=== PATIENT | male | born 1955 | race Caucasian/White ===

== ENCOUNTER → 2024-05-18 | Outpatient (CLI) | payer MEDICARE, SELFPAY ==
--- NOTE | 2024-05-18 | IMM_PTH ---
PATIENT: RAHAT LOPEZ LOC: [facility] U#:[id number] AGE/SX: 69/M ROOM: RE05/18/[address]: Dr. Jose Culver MD : 1955 BED: DIS: 05/18/2024 SPEC #: [id number] RECD: 05/20/24 11:51 STATUS: DIANNE REQ #: [id number] SHAZIA: 05/18/24 00:[address]: Jose Culver DEPT: IMMUNOHISTOCHEMISTRY RECD BY: Melo Brody ENTERED: 05/20/24 11:53 SP TYPE: IMMUNO OTHR DR: Dr. Toi Quiles MD Tissues: C - PROSTATE RIGHT E - PROSTATE LEFT F - PROSTATE LEFT Procedures: 34BE12 (add) P40 (add) P40 (initial) PHYSICIAN & INSTITUTION [place] [id number] SPECIMEN INFORMATION: Tissue Source: C- Right base, E- Left mid, F- Left base Clinical Info: Elevated PSA Specimen Number: [id number] C, E, F CPT code: 30099,77485z2 METHODOLOGY: Deparaffinized sections of prefer/formalin-fixed tissue or PAP/DQ stained slides are incubated with monoclonal/polyclonal antibodies/oligonucleotide probes. Localization is made via biotin free immunoperoxidase method. Appropriate controls are performed and reacted as expected. Results on target cell population are indicated in the following table: RESULTS: ANTIBODY / CLONE RESULT Block C P40 (BC28) negative 34BE12 (34BE12) negative Block E P40 (BC28) negative* 34BE12 (34BE12) negative * Block F P40 (BC28) positive 34BE12 (34BE12) positive * Positive in the area of high-grade prostatic intraepithelial neoplasia (HGPIN). These tests were developed and their performance characteristics determined by [facility]. They may not have been cleared or approved by the U.S. Food and Drug Administration. The FDA has determined that such clearance or approval is not necessary. The above immunohistochemical/dualISH markers are ordered and reviewed by the Pathologist. INTERPRETATION: C. Prostate, right base, core biopsy: A minute focus of adenocarcinoma. E. Prostate, left mid, core biopsy: A minute focus of adenocarcinoma. Focal high-grade prostatic intraepithelial neoplasia (HGPIN). F. Prostate, left base, core biopsy: High-grade prostatic intraepithelial neoplasia (HGPIN). PAULINO/ 05/21/2024
--- NOTE | 2024-05-18 | PROSBIL_PTH ---
PATIENT: RAHAT LOPEZ LOC: [facility] U#:[id number] AGE/SX: 69/M ROOM: RE05/18/[address]: Dr. Jose Culver MD : 1955 BED: DIS: 05/18/2024 SPEC #: [id number] RECD: 05/19/24 10:35 STATUS: DIANNE REQ #: [id number] SHAZIA: 05/18/24 00:[address]: Jose Culver DEPT: SURGICAL PATHOLOGY RECD BY: Annie Camarena ENTERED: 05/19/24 10:35 SP TYPE: PROST BX WILLIAM DR: Dr. Toi Quiles MD Tissues: A - PROSTATE RIGHT B - PROSTATE RIGHT C - PROSTATE RIGHT D - PROSTATE LEFT E - PROSTATE LEFT F - PROSTATE LEFT Procedures: PROSTATE BX HEADER OPERATION: Prostate biopsy PRE-OP DIAGNOSIS: Elevated PSA TISSUE SUBMITTED: A - Right apex, B - Right mid, C - Right base, D - Left apex, E - Left mid, F - Left base MICROSCOPIC DIAGNOSIS A. Right prostate, apex, core biopsy: Prostatic tissue, negative for malignancy. B. Right prostate, mid, core biopsy: Prostatic tissue, negative for malignancy. C. Right prostate, base, core biopsy: A minute focus of prostatic adenocarcinoma. [place] grade: 3+3=6 Number of cores involved: 1/2 Proportion of tissue involved: <5 % Perineural invasion: Not identified. Greatest tumor length: <0.1 cm See comment. D. Left prostate, apex, core biopsy: Prostatic adenocarcinoma. [place] grade: 3+4=7 Number of cores involved: 1/1 Proportion of tissue involved: ~40 % Perineural invasion: Not identified. Greatest tumor length: 0.4 cm E. Left prostate, mid, core biopsy: A minute focus prostatic adenocarcinoma. Maty grade: 3+3=6 Number of cores involved: 1/2 Proportion of tissue involved: <5 % Perineural invasion: Not identified. Greatest tumor length: <0.1 cm Focal high-grade prostatic intraepithelial neoplasia (HGPIN). See comment. F. Left prostate, base, core biopsy: Focal high-grade prostatic intraepithelial neoplasia (HGPIN). See comment. PAULINO/ 05/20/2024 COMMENT C, E, F. Immunohistochemistry ([id number]) supports the above diagnosis. MICROSCOPIC DESCRIPTION Slides are reviewed. GROSS DESCRIPTION A - Received is one container designated prostate, right apex. The specimen consists of one elongated fragments of light toussaint-white soft tissue measuring 1.5 cm in length and 0.1 cm in diameter. The specimen is totally submitted in one cassette. B - Received is one container designated prostate, right mid. The specimen consists of two elongated fragments of light toussaint-white soft tissue each measuring 1.5 cm in length and 0.1 cm in diameter. The specimen is totally submitted in one cassette. C - Received is one container designated prostate, right base. The specimen consists of two elongated fragments of light toussaint-white soft tissue measuring 0.5 and 1.0 cm in length and 0.1 cm in diameter. The specimen is totally submitted in one cassette. D - Received is one container designated prostate, left apex. The specimen consists of one elongated fragments of light toussaint-white soft tissue measuring 1.2 cm in length and 0.1 cm in diameter. The specimen is totally submitted in one cassette. E - Received is one container designated prostate, left mid. The specimen consists of two elongated fragments of light toussaint-white soft tissue each measuring 1.0 cm in length and 0.1 cm in diameter. The specimen is totally submitted in one cassette. F - Received is one container designated prostate, left base. The specimen consists of two elongated fragments of light toussaint-white soft tissue each measuring 1.0 cm in length and 0.1 cm in diameter. The specimen is totally submitted in one cassette. / PAULINO/ 05/19/2024 TC:0 CPT: G0146
== END | disposition home or self-care (01) ==
PROVIDERS: PCP Family Medicine; Referring Provider Urology; Visit Provider Urology
DX: R97.20 Elevated prostate specific antigen [PSA] (principal)
CPT/HCPCS: 88305; 88341; 88342; G0416

== ENCOUNTER → 2024-05-25 | Outpatient (CLI) | payer MEDICARE, OTHER, SELFPAY ==
--- NOTE | 2024-05-25 14:10 | CT_ITS ---
STUDY: CT ABDOMEN AND PELVIS WITH CONTRAST REASON FOR EXAM: Male, 69 years old. PROSTATE CA RADIATION DOSAGE (If Supplied By Facility): CTDIvol = ( 18.58 ) mGy, DLP = ( 937.01 ) mGycm TECHNIQUE: Oral and amp; IV Readi-CAT and amp; 100mL Isovue-370 was administered. Transaxial images were obtained from the dome of the diaphragm to the symphysis pubis. Multiplanar coronal and sagittal images were reformatted. The protocol utilizes one or more of the following dose reduction techniques: automated exposure control, adjustment of mA and/or kV according to patient size,and/or use of iterative reconstruction technique. COMPARISON: No relevant prior comparison study available FINDINGS: The visualized lung bases are unremarkable. The visualized portions of the heart are within normal limits. 6 mm low-density lesion in the right lobe of the liver likely representing cyst. Gallstone is seen. Normal spleen. Normal pancreas. Normal bilateral adrenal glands. Normal visualized stomach. Normal small intestine. Fecal retention. No evidence of acute diverticulitis. There is non-visualization of the appendix. No evidence of abdominal aortic aneurysm. No retroperitoneal adenopathy. Normal right kidney. Normal left kidney. Thickening of the bladder wall likely due to underdistention. Prominent prostate. Small left inguinal hernia containing fat. Dextroscoliosis and multilevel degenerative changes of the spine. No evidence of osteoblastic or osteolytic lesions.. CT/Abdomen/Pelvis WITH Contrast IMPRESSION: 1. No focal acute inflammatory process. 2. Fecal retention. 3. No evidence of metastatic disease. Electronically Signed: Kar Pritchett MD at 15:25 EDT ,
[2024-05-25 14:49] LABS: CREATININE FINGERSTICK < 1.0 mg/dL (0.70-1.30); EGFR FINGERSTICK > 60.0000 mL/min (>60)
== END | disposition home or self-care (01) ==
PROVIDERS: PCP Family Medicine; Referring Provider Urology; Visit Provider Urology
DX: C61 Malignant neoplasm of prostate (principal)
CPT/HCPCS: 74177; Q9967

== ENCOUNTER → 2024-06-01 | Outpatient (CLI) | payer MEDICARE, OTHER, SELFPAY ==
--- NOTE | 2024-06-01 07:40 | NM_ITS ---
CLINICAL: 69-year-old male with history of primary prostate carcinoma. WHOLE BODY 99m Tc MDP RADIONUCLIDE BONE SCINTIGRAPHY COMPARISON: CT of the abdomen-pelvis report 05/25/2024 FINDINGS: Following the intravenous administration of 26.6 mCi of 99m Tc MDP, whole body bone images reveal: 1. Increased radiopharmaceutical concentration is defined in the acromioclavicular compartments of both shoulders, the mid cervical spine posteriorly on the left and right, the fourth thoracic vertebra posteriorly on the right, the 12th thoracic vertebra posteriorly on the right, the second third and fifth lumbar vertebra posteriorly on the left, the knee articulations bilaterally, the left ankle, both elbow articulations, the right-left wrists. 2. The remaining skeletal structures are scintigraphically unremarkable with normal-appearing renal images and urinary bladder activity identified. Uptake is defined in the sternomanubrial synchondrosis most consistent with a normal variant. NM/Bone Scan Whole Body IMPRESSION: 1. The increase in uptake defined in the bilateral shoulders, the cervical, thoracic and lumbar spine, both knees, the left ankle, the elbow articulations bilaterally, the right and left wrists is commensurate with degenerative arthritis. Plain film radiography correlation may be of benefit in the region of the lumbar spine and left knee if clinically indicated. 2. There is no definitive scintigraphic evidence of diffuse axial skeletal metastatic disease on the current examination. Electronically Signed: Wagner Nino DO at 12:45 EDT ,
== END | disposition home or self-care (01) ==
PROVIDERS: PCP Family Medicine; Referring Provider Urology; Visit Provider Urology
DX: C61 Malignant neoplasm of prostate (principal)
CPT/HCPCS: 78306; A9503

== ENCOUNTER 2024-07-14 10:53 | Observation (INO) | payer MEDICARE, OTHER, SELFPAY ==
--- NOTE | 2024-07-12 08:43 | EKG12_ITS ---
Test Reason : PRE OP Blood Pressure : / mmHG Vent. Rate : 060 BPM Atrial Rate : 060 BPM P-R Int : 160 ms QRS Dur : 086 ms QT Int : 390 ms P-R-T Axes : 025 013 -12 degrees QTc Int : 390 ms Normal sinus rhythm Inferior infarct , age undetermined Abnormal ECG Confirmed by BRITTANY LI, LEONARDA ([id number]), make up editor VIRGEN CHRISTINE ([id number]) on 07/16/2024 6:10:22 AM Referred By: Jose Culver Confirmed By:KATY SOTO MD
[2024-07-12 09:32] LABS: Hematocrit 43.3 % (40-54); Hemoglobin 14.3 g/dL (13.0-16.5); Mean Corpuscular Hgb 31.5 pg (27.0-32.0); Mean Corpuscular Volume 95.4 fL (80-94); Mean Platelet Vol. 9.8 fl (6.2-12.0); Platelet Count 218 K/mm3 (150-450); RBC Distribution Width CV 13.2 % (11.6-14.6); RBC Distribution Width SD 46.1 fl (35.1-43.9); Red Blood Count 4.54 M/mm3 (4.6-6.2); White Blood Count 3.8 K/mm3 (4.4-11.0)
[2024-07-12 09:43] LABS: International Normalized Ratio 1.2; Prothrombin Time (Protime)PT. 15.3 SECONDS (11.7-14.9)
[2024-07-12 09:44] LABS: Partial Thromboplast Time 29.5 Seconds (24.1-36.2)
[2024-07-12 10:00] LABS: AST(SGOT) 19 U/L (15-37); Alanine Aminotransfer ALT/SGPT 25 U/L (16-61); Albumin, Serum 3.5 g/dL (3.2-5.0); Alkaline Phosphatase 91 U/L (45-117); Bilirubin, Direct 0.23 mg/dL (0.00-0.30); Globulin 3.7 g/dL (2.2-4.2); Protein, Total 7.2 g/dL (6.4-8.2)
[2024-07-14] VITALS (15 sets, daily range): BP systolic 106–148; BP diastolic 62–91; PULSE 50–69; RESP 14–18; TEMP 36.4–37.2; O2SAT 90–99; BMI 26.7
[2024-07-14] MEDS: Lactated Ringers 1,000 ML 15 ML IV (06:22)
--- NOTE | 2024-07-14 07:08 | PCM.PRE.AN2 ---
ASA Classification* ASA Classification ASA Classification: 2 Assessment & Plan Anesthesia* Anesthesia Assessment Anesthesia Assessment: Discussed sedation and/or anesthesia options, risks, benefits, and alternatives with patient/parents/legal guardian/POA. Questions invited. The patient/parents/legal guardian/POA seems to understand and agrees to proceed with anesthesia plan. Reviewed the physical assessment, medical history, allergy history and patient home medications list prior to surgery/procedure/anesthetic and documented any changes. Performed airway and anesthesia risk assessments. Anesthesia Type Anesthesia Type: General Anesthesia Focused Assessment* Temperature: 98.5 F Pulse Rate: 60 Blood Pressure: 148/91 Respiratory Rate: 18 Pulse Ox: 97 Airway Assessment Mouth opens: >3 cm Mallampati Score: II Focused Labs Anesthesia Preop lab: CBC WBC 3.8 K/mm3 (4.4-11.0) L 07/12/24 09:02 RBC 4.54 M/mm3 (4.6-6.2) L 07/12/24 09:02 Hgb 14.3 g/dL (13.0-16.5) 07/12/24 09:02 Hct 43.3 % (40-54) 07/12/24 09:02 Plt Count 218 K/mm3 (150-450) 07/12/24 09:02 CHEMISTRY COAG PT 15.3 SECONDS (11.7-14.9) H 07/12/24 09:02 Pre-Assessment Diagnosis/Proposed Procedure Planned Operative Procedure(s): Lap Robotic Radical Prostatectomy Anesthesia History 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 When Was Last Pacemaker Check QUESTION #4 FULL TEXT: You/Your Family Experience fever (hyperthermia) with Anesthesia Last Oral Intake Last Oral intake: Last Oral Intake NPO since 18:30 07/14/24 06:09 Meds taken in AM with sips of Yes 07/14/24 06:09 water? Meds patient instructed to take am of surgery PONV PONV - steam conditioner operator: PONV - steam conditioner operator Female No 07/07/24 15:04 HX of Motion Sickness No 07/07/24 15:04 HX of N/V After Surgery No 07/07/24 15:04 Non-Smoker Yes 07/07/24 15:04 Duration of Surgery greater Yes 07/07/24 15:04 than 60 minutes Number of Risk Factors 2 07/07/24 15:04 PONV Score Moderate Risk 07/07/24 15:04 Height & Weight Height & Weight: Anesthesia: Height & Weight Height 5 ft 5 in 07/14/24 06:09 Weight: 73 kg 07/14/24 06:09 Body Mass Index (BMI) 26.7 07/14/24 06:09 Respiratory Assessment Respiratory Assessment - steam conditioner operator: Respiratory Tract Infection Hx - steam conditioner operator Hx Respiratory Tract Infection No 07/07/24 15:04 STOP Sleep Apnea STOP Sleep Apnea - steam conditioner operator: STOP Sleep Apnea - steam conditioner operator Hx Hypertension Yes: CONTROLLED WITH MED 07/07/24 15:04 Hx Sleep Apnea No 07/07/24 15:04 CPAP BIPAP Do you snore loudly (louder No 07/07/24 15:04 than talking or can be heard Do you often feel tired/ No 07/07/24 15:04 fatigued/ sleepy during daytime? Has anyone observed you stop No 07/07/24 15:04 breathing during sleep? STOP Results Negative 07/07/24 15:04 QUESTION #5 FULL TEXT : Do you snore loudly (louder than talking or can be heard through closed doors)? 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 Specify any problems Hx of Preganancy in last 3 N/A 07/07/24 15:04 Months Nurse Filling Out Transfusion NBUCHER 07/07/24 15:04 & Questions: Date: 07/07/24 07/07/24 15:04 Time: 15:06 07/07/24 15:04 Patient unable to answer at this time (ie. confused, unrespo /Reproduction History /Reproductive History - steam conditioner operator: /Reproductive Hx- steam conditioner operator Hx Now No 07/07/24 15:04 Gestational Age (in weeks): EDC: Hx Hx Para Hx Section SAB No 07/07/24 15:04 Active Medications Active Medications: Current Medications Generic Name Dose Route Start Last Admin Trade Name Freq PRN Reason Stop Dose Admin Cefazolin Sodium 2 gm/ Sodium 110 mls @ 150 mls/hr 07/14/24 07:30 Chloride IV 07/14/24 08:13 PREOP ONE Lactated Ringer's 1,000 mls @ 15 mls/hr 07/14/24 05:45 07/14/24 06:22 IV 15 mls/hr .Q48H LETTY Administration PFSH Medical History Wears glasses Ambulates with cane Arthritis Prostate disease Easy bruising Restless legs Heartburn Hypertension Non-smoker Home Medications ?Medication ?Instructions ?Recorded ?Last Taken ?Type amlodipine 5 mg tablet 5 mg PO DAILY 07/07/24 07/14/24 History aspirin 81 mg tablet,delayed 81 mg PO DAILY 07/07/24 06/29/24 History release (Adult Low Dose Aspirin) calcium carbonate 600 mg-vitamin 1 tab PO DAILY 07/07/24 07/06/24 History D3 5 mcg (200 unit) tablet (Calcium 600 + D(3)) multivitamin (Daily Multi-Vitamin 1 tab PO DAILY 07/07/24 07/06/24 History tablet) Allergy/AdvReac Type Severity Reaction Status Date / Time procaine Allergy Severe Swelling Verified 07/14/24 06:09 adhesive tape (plastic tape) Allergy Intermediate Other Verified 07/14/24 06:09 Surgical History (Updated 07/07/24 @ 15:10 by Kaye Evangelista) History of esophagogastroduodenoscopy (EGD) History of colonoscopy History of angioplasty Social History Smoking Status: Never smoker Review of Systems (Anesthesia) ROS Narrative System reviewed and no additional complaints, except as documented.
--- NOTE | 2024-07-14 07:17 | PCM.HP.STD ---
HPI - General General Date of Service: 07/14/24 Chief Complaint: Prostate cancer HPI Narrative RAHAT LOPEZ, is a 69 M who presents for a robotic radical prostatectomy he has a 20 g prostate [place] 7 disease intact the options of management and he wishes to proceed with a radical prostatectomy. Plan to do a Retzius sparing and nerve sparing approach. PFSH Medical History Wears glasses Ambulates with cane Arthritis Prostate disease Easy bruising Restless legs Heartburn Hypertension Non-smoker Home Medications ?Medication ?Instructions ?Recorded ?Last Taken ?Type amlodipine 5 mg tablet 5 mg PO DAILY 07/07/24 07/14/24 History aspirin 81 mg tablet,delayed 81 mg PO DAILY 07/07/24 06/29/24 History release (Adult Low Dose Aspirin) calcium carbonate 600 mg-vitamin 1 tab PO DAILY 07/07/24 07/06/24 History D3 5 mcg (200 unit) tablet (Calcium 600 + D(3)) multivitamin (Daily Multi-Vitamin 1 tab PO DAILY 07/07/24 07/06/24 History tablet) Allergy/AdvReac Type Severity Reaction Status Date / Time procaine Allergy Severe Swelling Verified 07/14/24 06:09 adhesive tape (plastic tape) Allergy Intermediate Other Verified 07/14/24 06:09 Surgical History (Updated 07/07/24 @ 15:10 by Kaye Evangelista) History of esophagogastroduodenoscopy (EGD) History of colonoscopy History of angioplasty Social History Smoking Status: Never smoker Vital Signs Vital Signs Vital Signs: 07/14/24 06:09 07/14/24 06:09 07/14/24 07:08 Temperature 98.5 F 98.5 F Temperature Source Temporal Pulse Rate 60 60 Respiratory Rate 18 18 Respiratory Pattern Normal Blood Pressure 148/91 H 148/91 H Blood Pressure Mean 110 Blood Pressure Source Monitor Blood Pressure Position Semi-Fowlers Blood Pressure Location Right Arm Pulse Ox 97 97 Oxygen Delivery Method Room Air Weight Weight: 73 kg Body Mass Index (BMI) 26.7 Results Lab / Micro Data 07/12/24 09:02
[2024-07-14] MEDS: Cefazolin 2 GM in 0.9% Normal Saline (100mL Bag) 100 ML IV (07:30)
--- NOTE | 2024-07-14 07:30 | PROST_PTH ---
PATIENT: RAHAT LOPEZ LOC: [facility] U#:[id number] AGE/SX: 69/M ROOM: PA319 RE07/14/[address]: Dr. Jose Culver MD : 1955 BED: 1 DIS: 07/15/2024 SPEC #: [id number] RECD: 07/14/24 12:50 STATUS: DIANNE RAMIREZ #: [id number] SHAZIA: 07/14/24 07:[address]: Jose Culver DEPT: SURGICAL PATHOLOGY RECD BY: Gerry Davis ENTERED: 07/15/24 09:16 SP TYPE: PROSTATE OTHR DR: MD Dr. Toi Dominique MD Tissues: A - Lymph node of pelvis, NOS B - Prostate, NOS Procedures: Surgery Specimen Level V Surgery Specimen Level HEADER OPERATION: Laparoscopic robotic radical prostatectomy PRE-OP DIAGNOSIS: Prostate cancer TISSUE SUBMITTED: A- Right pelvic lymph node, B- Prostate MICROSCOPIC DIAGNOSIS A. Right pelvic lymph node, regional lymphadenectomy: Two out of two lymph nodes, negative for carcinoma. B. Prostate, radical prostatectomy: Prostatic adenocarcinoma. See cancer maranda below. 07/16/2024 COMMENT PROSTATE CANCER (RADICAL) SUMMARY: Procedure: Radical Prostatectomy Prostate Size: Weight: 35.8gm Size: 4.0 x 3.0 x 3.0cm Histologic Type: Adenocarcinoma Histologic Grade: 7 Percent of Pattern 4: 35 Percent of Pattern 5: 0 Intraductal Carcinoma: Not identified Tumor Quantitation: 3.0 x 2.0 x 0.8cm (from glass slides). Extra prostatic Extension: Not identified Urinary Bladder Neck Invasion: Not identified Seminal Vesicle Invasion: Not identified Lymph vascular Invasion: Not identified Perineural Invasion: Focally present Margins: Focally positive Location of positive margin: posterior margin Regional Lymph Nodes: Number of lymph nodes involved by carcinoma: 0 Total number of lymph nodes examined: 2 Treatment Effect: Unknown Additional Pathologic Findings: Benign nodule hyperplasia. Please make reference to patient's previous prostate biopsies ([id number]) in which invasive prostate adenocarcinoma 7(3+4) was identified. Clinical History: prostate cancer PATHOLOGIC STAGE: pT2 N0 Mx The above summary is in compliance with [employer] (CAP) Cancer Protocols Checklist and [place] Joint Committee on Cancer (AJCC), Staging Manual, 8th Ed. Case has been reviewed in consultation with Dr. Toussaint who concurs with the above diagnosis. IDC:[id number] MICROSCOPIC DESCRIPTION Slides are reviewed. GROSS DESCRIPTION A. Received in fixative is one container labeled with the patient's name and designated Right pelvic lymph node. The specimen consists of three variable pieces of soft tissue measuring in aggregate 2.5 x 2.0 x 0.5cm. Two possible lymph nodes are identified. Third piece consists of adipose tissue. The entire specimen is submitted in two cassettes as follows- 1- one bisected lymph node, 2- one lymph node and a piece of adipose tissue. B. Received in fixative is one container labeled with the patient's name and designated prostate. The specimen consists of a radical prostatectomy specimen consisting of prostate and bilateral seminal vesicles and vas deferens. The specimen weighs 35.8 gm. The prostate measures 4.0 cm transversely, 3.0 cm anterior-posteriorly and 3.0 cm craniocaudally. The right seminal vesicle measures 4.0 x 2.0 x 1.0 cm and right vas deferens measures 4.5 cm in length and 0.5 cm in diameter. The left seminal vesicle measures 3.5 x 1.0 x 1.5 cm and the left vas deferens measures 3.0 cm in length and 0.5 cm in diameter. The prostate is inked as follows: anterior surface - yellow, posterior surface - black, right lateral surface - blue, left lateral surface - green. The bilateral seminal vesicles and vas deferens are inked as follows: Posterior surface bilateral seminal vesicle and vas deferens - black, anterior surface right seminal vesicle and vas deferens - blue and anterior left seminal vesicle and vas deferens - green. Sections do not reveal any obvious mass lesions. Hand Inserter Operator sections are submitted in 20 cassettes as follows: 1 - right seminal vesicle and vas deferens, 2 - left seminal vesicle and vas deferens, 3-apical (distal urethral shave margin) 4&5- bladder shave (proximal urethral shave margin), 6-10 - apical portion of prostate, 11-14 - middle portion of prostate, 15-20 - basal portion of prostate. Note: More than 95% of the prostate is submitted for microscopic examination SJ/mr 07/15/2024 TC:0 CPT:18979,38835
--- NOTE | 2024-07-14 07:35 | PCM.DC ---
Discharge Instructions Diet Discharge Diet: No restrictions, Light diet - advance as tolerated and Soft diet Activity Discharge Activity: May Not Drive Return to work on:: 08/11/24 May shower in (days): 2 Lifting Restrictions: no lifting! Dressing / Incision Suture Line Care: Avoid Pulling/Pushing and Avoid Pinching/Bending Catheter: Ferrer to leg bag and Ferrer to large bag Drain: [place] Follow Up Care Please Follow Up With: Jose Culver MD When: Call for an appt in 2 weeks to have ferrer removed. Test Results: Test results from this visit will be discussed in further detail at your follow-up appointment, if applicable. Discharge Plan Admission Primary Reason for Your Visit: robotic prostatectomy Attending Provider: Jose Culver Primary Care Provider: Toi Quiles Consulting Providers: Bret Mills Instructions Patient Instructions: Radical Prostatectomy, Radical Prostatectomy Dc Print Language: Eritre[place] Discharge Orders/Prescriptions Prescriptions: New ciprofloxacin HCl [Cipro] 500 mg tablet 500 mg PO BID Qty: 20 0RF docusate sodium [Colace] 100 mg capsule 100 mg PO BID Qty: 20 0RF oxycodone 5 mg tablet 5 mg PO Q6H PRN (Reason: pain) 3 Days Qty: 14 0RF Continued amlodipine 5 mg tablet 5 mg PO DAILY calcium carbonate-vitamin D3 [Calcium 600 + D(3)] 600 mg-5 mcg (200 unit) tablet 1 tab PO DAILY multivitamin [Daily Multi-Vitamin] Tablet 1 tab PO DAILY aspirin [Adult Low Dose Aspirin] 81 mg tablet,delayed release (DR/EC) 81 mg PO DAILY Other Ambulatory Orders: 12 Lead EKG (Routine) Timeframe: 20240712 Location: None Selected Ordered By: Dr. Bret Mills Referrals / Follow Up: Toi Quiles MD [Primary Care Provider] - Jose Culver MD [Med Staff - Active Staff] - Disposition Disposition (needs filled in before D/C Order can be placed): Home, Self Care
--- NOTE | 2024-07-14 10:44 | OP.PCM_ITS ---
Report of Operation Date of Procedure: 07/14/24 Pre-Operative Diagnosis: Prostate cancer Post-Operative Diagnosis: The same Surgery/Procedure Performed:: Laparoscopic robotic assisted radical prostatectomy with Retzius this approach and pelvic lymph node dissection Description of Surgical Findings:: Patient was identified in the preoperative area and marked and seen we talked about surgery remove his prostate was involved and potential outcomes. We talked about the potential to lose erections and also have bladder control problems after surgery including stress incontinence. Patient's questions were addressed and he signed consent form and we will plan to proceed today with a robotic radical prostatectomy Retzius. Approach with bilateral lymph node dissection. Patient is taken back to the operating room after smooth induction of anesthesia he was placed upon the table make sure all his pressure points were padded. We used the pink foam and pink foam secure system to secure him on the table he was placed in dorsolithotomy position with the legs in stirrups making sure that all his pressure points were padded we did a tilt test to make sure he did not slide in the bed. And the patient was placed flat in the bed his penis and testicles and pelvic area were prepped and in the abdomen was also prepped with chlorhexidine prep. Patient's abdomen and penis and testicles were then draped in usual sterile fashion. I then identified the umbilicus infiltrated right above the umbilicus and a small incision, probed the wound with a hemostat identified the fascia and then used a Veress needle to advance through the fascia into the peritoneal cavity. We then filled the peritoneal cavity CO2 gas and obtained a pneumoperitoneum. I then placed my first trocar into the abdomen this was to be the camera trocar. After I placed the camera trocar then the other trocars were placed under direct visualization placed a right arm trocar to left arm trocars and air seal port and a suction trocar for my certified surgical assistant. We then placed the patient in full Trendelenburg and the robot was then docked. Then using a 30 degree lens we placed the instruments into the abdomen under direct visualization and started by first mobilizing the sigmoid colon. The sigmoid colon and the white line of Toldt was incised and mobilized off the lateral sidewall to allow full retraction of the colon from the pelvis. Once this was fully accomplished then I was able to get into the posterior space behind the bladder we then identified the vas deferens on the right side. I then traced the right vas deferens all the way down to the prostate we incised the peritoneum over the prostate identified the right vas deferens and then the left vas deferens. Identified the several vesicles below this. I then went below this and identified Denonvilliers' fascia and incised the Denonvilliers' fascia in the midline and then created a space between the rectum and the prostate I then dissected all the way to the apex. We then flipped the camera 30 degrees up to get a bit better visualization of the prostate. I then very gently dissected the Denonvilliers' fascia off the posterior aspect of the prostate all the way to the apex of sliding the tissue off the prostate to get to the semipseudocapsule on the prostate with unable to get to the lateral edge of the prostate and then to release neurovascular bundles on both sides I then started between the apex of the prostate to release neurovascular bundle to peel the neurovascular 1 off the prostate making sure I stayed around the apex without violating the prostate capsule I then worked my way back toward the base of the prostate releasing the neurovascular under posteriorly back to the base of the prostate. This was done on the right side we did the same procedure in the left side releasing the neurovascular bundle posteriorly all the way back to the base of the prostate. I then pulled out and look at the vas deferens some vesicles I transected the vas deferens and then dissected the vas deferens and some vesicles en bloc of the lateral sidewall was using minimal electrocautery and sharp dissection to free up the vas deferens and vesicle I then was able to laterally retract the right vas deferens medially and then started working to get the space between the edge of the prostate and the pseudocapsule identified the pseudocapsule and then coming to the pedicle the prostate with bipolar coagulation on the right side and then following the capsule all the way toward the apex and then following up along the prostate capsule for the apex releasing the neurovascular bundle off the right side working on my way anterior. We then pulled out the pelvis prostate area again and then dissected out the left seminal vesicle and left vas deferens and then pulled these laterally and then again I went to the pedicle of the prostate and then was able to identify the neurovascular bundle that was priorly freed up and then freed up the Norvasc of 10 and then worked my way on the left side the prostate all the way to the apex freeing up the tissue off the left pseudocapsule the prostate all the way anteriorly. Then I worked toward the anterior part of the prostate freeing up the prostate is much as possible anteriorly toward the apex in the back to the bladder neck then at this point I could identify the bladder neck more clearly since the prostate then. Freed up laterally and medially and inferiorly I then very carefully started dissecting through the muscular attachments between the bladder neck and the prostate until I encountered the urethra and the Ferrer catheter at this point Ferrer catheter was deflated and pulled back and then I continued to dissect off the bladder neck from the prostate working all the way up to the base of the prostate and then anterior the prostate. Then the Ferrer catheter was pulled back further and then I worked my way up to the apex of the prostate and then circumferentially dissected all the way up to the apex of prostate making sure to stay outside the capsule and identify the sphincter complex I then incised the urethra right in front of the sphincter and dissected off the prostate off the sphincter complex and then the prostate was free and was placed in Endo Catch bag. Prior to this also in the bladder neck place a stay suture 3-0 Vicryl to locate the bladder neck. Then we proceeded with our anastomosis between the urethra and the bladder neck this was done using a 2 oh STRATAFIX stitch to bring together the bladder neck and the urethra started at the 12 o'clock position and worked my way to the 6 o'clock position on the right side and the left side used a dyed and undyed suture to make sure to keep both sutures aligned up and then at the end I was able to bring down the bladder neck to the urethra and then we took out the catheter that was initially put in to the abdomen for the case and we put in the 18 [place] elim ira tip catheter into the bladder helped it as it made to the turn to the bladder and then we put 10 cc in the balloon we irrigated the bladder and made sure that the anastomosis was watertight. We then inspected for bleeding and there was no bleeding in the base of the where the prostate was removed. We pulled out of the pelvis we flipped the camera 30 degrees down and then I made a window in the peritoneum and dissected out the pelvic lymph nodes on the right pelvic sidewall off the external and in iliac artery and vein. These lymph nodes are and handed off the specimen. I then went to the left side and opened up the peritoneal wound on the left side and then dissected out the lymph node tissue from the left iliac artery and vein. We used clips and hemostasis to obtain hemostasis and remove these lymph nodes. At this point the robot was undocked the prostate was extracted through the umbilical incision we then closed the end Vicryl incision with a 0 Vicryl interrupted [id number] stitches we inspected the abdomen again removed all the ports under visualiz ation there is no sign of injury or bleeding from either site. Desufflated the abdomen we then closed and sutured all the incision sites with subcuticular stitch using 4-0 Monocryl dressings and Band-Aids were placed on all the incisions patient's anesthetic is currently being reversed and to be taken back to the PACU in stable condition the catheter was irrigated out completely and was draining with clear yellow urine. Surgeon: Jose Culver Type of Anesthesia: General Drains: ferrer 18 fr elim ira tip, and KIM drain Estimated Blood Loss (mL): 200 Admit VTE Documentation VTE Present on Admission: No VTE Mechan Device Prophylaxis: SCD's VTE Pharm Prophylaxis ordered?: No
[2024-07-14] MEDS: Bupivacaine Mpf 0.5% 30 ML VIAL (10:47)
--- NOTE | 2024-07-14 11:04 | PCM.POST.ANE ---
Anesthesia: Postop Eval I Current Vital Signs Temperature: 97.8 F Pulse Rate: 64 Blood Pressure: 106/72 Respiratory Rate: 14 Pulse Ox: 98 Oxygen Delivery Method: Nasal Cannula Oxygen Flow Rate (L/min): 2 Assessment Airway patent: Yes Spontaneous unlabored respirations: Yes Mental status: Calm nausea: No Vomiting: No Anesthesia Complication: No Fluid Hydration Crystalloid volume administer (ml): 2,000 Total IV fluid infused: 2,000 Progress Note Anesthesia document: Postop Eval 1 completed: Yes
[2024-07-14] MEDS: Ketorolac 15 MG/ML Vial IV ×3 (11:27→23:02)
--- NOTE | 2024-07-14 11:44 | POSTOPAN2_ITS ---
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 Spontaneous unlabored Yes 07/14/24 11:04 VETERINARY SURGEON.ABRAM respirations Mental status Calm 07/14/24 11:04 VETERINARY SURGEON.MAICOLU nausea No 07/14/24 11:04 VETERINARY SURGEON.MAICOLU Vomiting No 07/14/24 11:04 VETERINARY SURGEON.ABRAM Anesthesia Postop Eval I: Fluid Summary Crystalloid volume administer 2,000 07/14/24 11:04 VETERINARY SURGEON.ABRAM (ml) Colloids volume administered ( ml) Blood Product volume administered (ml) Total IV fluid infused 2,000 07/14/24 11:04 VETERINARY SURGEON.ABRAM Anesthesia Postop Eval I: Summary Notes Anesthesia Complication No 07/14/24 11:04 VETERINARY SURGEON.ABRAM Anesthesia Complication Comment: Post-operative progress note Anesthesia: Postop Eval II Evaluation Mental status: Awake Pain Level: 0 nausea: No Vomiting: No
--- NOTE | 2024-07-14 11:44 | PCM.POSTANE2 ---
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 Spontaneous unlabored Yes 07/14/24 11:04 HOTSHOT SUPERINTENDENT.ABRAM respirations Mental status Calm 07/14/24 11:04 HOTSHOT SUPERINTENDENT.MAICOLU nausea No 07/14/24 11:04 HOTSHOT SUPERINTENDENT.MAICOLU Vomiting No 07/14/24 11:04 HOTSHOT SUPERINTENDENT.ABRAM Anesthesia Postop Eval I: Fluid Summary Crystalloid volume administer 2,000 07/14/24 11:04 HOTSHOT SUPERINTENDENT.ABRAM (ml) Colloids volume administered ( ml) Blood Product volume administered (ml) Total IV fluid infused 2,000 07/14/24 11:04 HOTSHOT SUPERINTENDENT.ABRAM Anesthesia Postop Eval I: Summary Notes Anesthesia Complication No 07/14/24 11:04 HOTSHOT SUPERINTENDENT.ABRAM Anesthesia Complication Comment: Post-operative progress note Anesthesia: Postop Eval II Evaluation Mental status: Awake Pain Level: 0 nausea: No Vomiting: No
[2024-07-14] MEDS: 0.9% Normal Saline (1000mL) 1,000 ML 50 ML IV (12:37)
[2024-07-14] MEDS: 0.9% Saline Lock 10 ML Syringe IV ×3 (12:37→23:02)
[2024-07-14] MEDS: Aspirin E.C. 81 MG Tablet PO (12:37)
[2024-07-14] MEDS: Docusate Sodium 100 MG Capsule 200 MG PO (22:51)
[2024-07-15 04:35] VITALS: BP 135/71; PULSE 58; RESP 16; TEMP 36.8; O2SAT 97
[2024-07-15] MEDS: 0.9% Normal Saline (1000mL) 1,000 ML 50 ML IV (04:44)
[2024-07-15] MEDS: Ketorolac 15 MG/ML Vial IV (04:45)
--- NOTE | 2024-07-15 07:30 | PCM.PN.GU ---
Subjective Subjective s/p radical prostatectomy doing well no complaints everton drain minimal- removed this am urine clear home today w ferrer to leg bag. Objective Data Objective Data Vital Signs: Vital Signs Temp Pulse Resp BP Pulse Ox O2 Del Method O2 Flow Rate 98.2 F 58 L 16 135/71 H 97 Room Air 2 07/15/24 04:35 07/15/24 04:35 07/15/24 04:35 07/15/24 04:35 07/15/24 04:35 07/15/24 04:35 07/14/24 12:19 Oxygen Flow Rate (L/min) 2 Oxygen Delivery Method Room Air Weight: 73 kg Body Mass Index (BMI) 26.7 Intake & Output: Intake and Output for Last 24 Hours 07/13/24 07/14/24 07/15/24 23:59 23:59 23:59 Intake Total 2905 / 2905 805.83 / 805.83 Output Total 1630 / 1630 750 / 750 Balance 1275 / 1275 55.83 / 55.83 Lab / Micro Data 07/12/24 09:02
[2024-07-15 07:40] VITALS: BP 134/72; PULSE 61; RESP 18; TEMP 36.6; O2SAT 98
[2024-07-15] MEDS: Docusate Sodium 100 MG Capsule 200 MG PO (07:41)
[2024-07-15] MEDS: amLODIPine 5 MG Tablet PO (07:41)
[2024-07-15] MEDS: Aspirin E.C. 81 MG Tablet PO (07:41)
--- NOTE | 2024-07-15 10:00 | CASEMGMT ---
RN FREDDIE NOTE: Discharge order is in. RN CM to room. Introduced self and role. Pt resting in bed. @ bedside. Pt states he has been up ad tay in room this AM and steady when ambulating. He lives w/his and is indep @ baseline. Pt discharging home w/F/C. He states has been educated on care of the F/C and feels comfortable discharging home w/it. He and deny having any discharge needs/concerns. Jarrett LAZARN RN CM
== END 2024-07-15 10:37 | disposition home or self-care (01) ==
LOC: SDC 12:04 → MS3 12:04
PROVIDERS: Anesthesiology; Admitting Provider Urology; PCP Family Medicine; Referring Provider Urology; Visit Provider Urology
PROC: 0VT04ZZ Resection of Prostate, Percutaneous Endoscopic Approach (ICD-10-PCS; CPT 55866; principal; 2024-07-14 07:10)
DX: C61 Malignant neoplasm of prostate (principal); I10 Essential (primary) hypertension; Z79.899 Other long term (current) drug therapy; Z79.82 Long term (current) use of aspirin; M19.90 Unspecified osteoarthritis, unspecified site; Z86.2 Personal history of diseases of the blood and blood-forming organs and certain disorders involving the immune mechanism
CPT/HCPCS: 55866; 00865; 36415; 80076; 85027; 85610; 85730; 86850; 86900; 86901; 88307; 88309; 93005; 94668; 96374; 96376; 99221; J7030; J7120; A4216; G0378; J2405